=== PATIENT | male | born 1940 | race Caucasian/White ===

== ENCOUNTER 2021-03-22 11:52 | Emergency (ER) | payer OTHER, MEDICARE | END 2021-03-22 14:57 | disposition home or self-care (01) | LOC: CSHERS 11:52 | DX: S22.41XA Multiple fractures of ribs, right side, initial encounter for closed fracture (principal); W01.0XXA Fall on same level from slipping, tripping and stumbling without subsequent striking against object, initial encounter | CPT/HCPCS: 94799 ==

== ENCOUNTER 2021-03-25 20:14 | Observation (INO) | payer MEDICARE ==
[2021-03-25] MEDS ORDERED: Ketorolac Tromethamine 30 MG/ML VIAL ONE (20:36)
[2021-03-25] MEDS ORDERED: Morphine 4 MG/ML VIAL ONE (21:06)
[2021-03-25 21:26] LABS: #Basophils 0.1 10x3/uL (0.0-0.2); #Eosinphils 0.2 10x3/uL (0.0-0.5); #Monocytes 1.4 10x3/uL (0.0-1.1); #Neutrophils 10.2 10x3/uL (1.5-8.4); %Basophils 0.4 % (0.0-2.0); %Eosinophils 1.3 % (0.0-6.0); %Lymphocytes 16.4 % (18.0-47.0); %Neutrophils 71.5 % (40.0-75.0); Hemoglobin 15.9 g/dL (13.5-17.5); Mean Corpuscular HGB CONC 34.6 g/dL (32.0-36.0); Mean Corpuscular Hemoglobin 31.1 pg (27.0-33.0); Mean Corpuscular Volume 89.6 fl (81.2-95.1); Mean Platelet Volume 9.9 fl (7.4-10.4); Platelet Count 223 10x3/uL (150-450); RBC Distribution Width 12.7 % (11.5-14.5); Red Blood Cell (RBC) Count 5.12 10x6/uL (4.32-5.72); White Blood Cell (WBC) Count 14.3 10x3/uL (3.5-10.5)
[2021-03-25 21:41] LABS: ALT (SGPT) 19 U/L (8-55); AST (SGOT) 14 U/L (5-34); Albumin 4.6 g/dL (3.4-4.8); Alkaline Phosphatase 117 U/L (40-110); Anion Gap 14 mmol/L (10-20); BUN (Urea Nitrogen) 18 mg/dL (8.4-25.7); Bilirubin, Total 1.7 mg/dL (0.2-1.2); CK (CPK) 36 U/L (30-200); Calc. Creatinine Clearance 0 mL/min (70-130); Calcium 9.5 mg/dL (7.8-10.44); Carbon Dioxide 24 mmol/L (23-31); Chloride 100 mmol/L (98-107); Globulin 2.3 g/dL (2.4-3.5); Glucose 120 mg/dL (83-110); Potassium 4.4 mmol/L (3.5-5.1); Protein, Total 6.9 g/dL (5.8-8.1); Sodium 134 mmol/L (136-145)
[2021-03-25] MEDS ORDERED: Senokot S 8.6-50 MG TAB PO PRN (22:43)
[2021-03-25] MEDS ORDERED: oxyCODONE 5 MG TAB PO PRN (22:43)
[2021-03-25] MEDS ORDERED: Metoprolol Tartrate 25 MG TAB PO SCH (23:45)
[2021-03-25] MEDS ORDERED: Atorvastatin Calcium 40 MG TAB PO SCH (23:45)
[2021-03-25 23:47] VITALS: BMI 28.1
[2021-03-26] MEDS: Acetaminophen 325 MG TAB PO SCH ×2 (00:05→05:55)
[2021-03-26 04:27] LABS: #Basophils 0.1 10x3/uL (0.0-0.2); #Eosinphils 0.1 10x3/uL (0.0-0.5); #Monocytes 1.3 10x3/uL (0.0-1.1); #Neutrophils 6.6 10x3/uL (1.5-8.4); %Basophils 0.5 % (0.0-2.0); %Eosinophils 1.2 % (0.0-6.0); %Lymphocytes 21.5 % (18.0-47.0); %Monocytes 12.2 % (0.0-10.0); %Neutrophils 64.3 % (40.0-75.0); Hemoglobin 13.6 g/dL (13.5-17.5); Mean Corpuscular HGB CONC 35.1 g/dL (32.0-36.0); Mean Corpuscular Hemoglobin 31.5 pg (27.0-33.0); Mean Corpuscular Volume 89.8 fl (81.2-95.1); Mean Platelet Volume 9.9 fl (7.4-10.4); Platelet Count 171 10x3/uL (150-450); RBC Distribution Width 12.6 % (11.5-14.5); Red Blood Cell (RBC) Count 4.32 10x6/uL (4.32-5.72); White Blood Cell (WBC) Count 10.3 10x3/uL (3.5-10.5)
[2021-03-26 04:41] LABS: Anion Gap 11 mmol/L (10-20); BUN (Urea Nitrogen) 23 mg/dL (8.4-25.7); Calc. Creatinine Clearance 67 mL/min (70-130); Calcium 8.9 mg/dL (7.8-10.44); Carbon Dioxide 26 mmol/L (23-31); Chloride 101 mmol/L (98-107); Glucose 125 mg/dL (83-110); Potassium 4.2 mmol/L (3.5-5.1); Sodium 134 mmol/L (136-145)
[2021-03-26] MEDS ORDERED: Aspirin 325 MG TAB PO SCH (06:00)
[2021-03-26] MEDS ORDERED: Metoprolol Tartrate 25 MG TAB PO SCH (09:00)
[2021-03-26] MEDS ORDERED: Polyethylene Glycol 3350 17 GM Packet PO SCH (09:00)
[2021-03-26] MEDS ORDERED: Lidocaine 5% Patch TD SCH (09:00)
[2021-03-26] MEDS ORDERED: Aspirin 81 mg Enteric Coated Tablet PO SCH (09:00)
[2021-03-26] MEDS ORDERED: Enoxaparin Sodium 40 MG/0.4 ML SYRINGE SC SCH (09:00)
[2021-03-26 12:00] VITALS: BP 132/62; TEMP 98
[2021-03-26 17:37] LABS: SARS-CoV-2 PCR by NAA Not Detected (NotDetected)
[2021-03-26] MEDS ORDERED: Atorvastatin Calcium 40 MG TAB PO SCH (21:00)
[2021-03-26] MEDS ORDERED: Transdermal Patch Removal TOP SCH (21:00)
== END 2021-03-26 12:50 | disposition home or self-care (01) ==
LOC: CSHERS 20:14 → CSHTELE 20:15
PROVIDERS: ADMIT Family Medicine; ATTEND Internal Medicine
DX: S22.41XA Multiple fractures of ribs, right side, initial encounter for closed fracture (principal); I25.2 Old myocardial infarction; K59.03 Drug induced constipation; W19.XXXA Unspecified fall, initial encounter; Z79.899 Other long term (current) drug therapy; Z79.82 Long term (current) use of aspirin; Z20.822 Contact with and (suspected) exposure to COVID-19
CPT/HCPCS: 71045; 71250; 80048; 80053; 82550; 83735; 83880; 84484; 85025 ×2; 96372 ×2; 96374; 97139; 99285; G0378 ×2; U0003; U0005; G0390; J1650; J1885; J2270